=== PATIENT | female | born 1945 | race Caucasian/White ===

== ENCOUNTER → 2023-08-10 15:10 | Outpatient (CLI) | payer MEDICARE, SELFPAY ==
--- NOTE | 2023-08-10 14:34 | DI.RAD_ITS ---
Exam(s) XR HUMERUS LT EXAM: XR HUMERUS LT CLINICAL HISTORY: evaluate fx, lt upper arm pain, M79.622. TECHNIQUE: 2D digital imaging was performed. COMPARISON: No exams were available for comparison FINDINGS: There is a mildly impacted humeral neck fracture. There is also vertically orientated nondisplaced f racture of the greater tuberosity of the humeral head. No dislocation of the humeral head evident. No obvious fractures lower down in the humerus. No obvious scapular fracture. No adjacent rib fract ures. IMPRESSION: Humeral head-neck fractures as described above. Mild impaction. No prominent displacement and no di slocation of the humeral head. DATA REPOSITORY: RADIATION DOSE DELIVERED:
--- NOTE | 2023-08-10 14:40 | DI.RAD_ITS ---
Exam(s) XR ELBOW LT COMPLETE EXAM: XR ELBOW LT COMPLETE CLINICAL HISTORY: evaluate fx, lt upper arm pain, M79.622. TECHNIQUE: 2D digital imaging was performed. COMPARISON: No exams were available for comparison FINDINGS: 3 views No evidence of fracture of the distal humerus and elbow. Radial head and neck appear unremarkable. No obvious joint effusion. Bone density normal. No osseous lesions. Dorsal soft tissue swelling is noted in the proximal forearm IMPRESSION: Dorsal soft tissue swelling but no elbow fracture. Please note that there is a fracture of the humeral head-neck. See separate humerus report. DATA REPOSITORY: RADIATION DOSE DELIVERED:
== END ==
PROVIDERS: Visit Provider Nurse Practitioner Family
DX: M79.622 Pain in left upper arm (principal); S42.295A Other nondisplaced fracture of upper end of left humerus, initial encounter for closed fracture; X58.XXXA Exposure to other specified factors, initial encounter
CPT/HCPCS: 73060; 73080

== ENCOUNTER 2023-08-13 09:01 | Outpatient (CLI) | payer MEDICARE, SELFPAY ==
--- NOTE | 2023-08-13 08:30 | DI.RAD_ITS ---
Exam(s) XR SHOULDER LT COMPLETE 2+V EXAM: XR SHOULDER LT COMPLETE 2+V CLINICAL HISTORY: fracture follow up. TECHNIQUE: 2D digital imaging was performed. COMPARISON: CR XR HUMERUS LT from 08/10/2023 FINDINGS: Two views. Again noted is the recently described acute fracture at the base of the greater tuberosity and also i nvolving the lateral humeral neck. There is again no significant displacement. No abnormal calcific ations nor bone fragments evident in the subacromial space.. No dislocation IMPRESSION: Stable appearance of the previously described fracture site without significant displacement. DATA REPOSITORY: RADIATION DOSE DELIVERED:
== END 2023-08-13 09:02 | disposition home or self-care (01) ==
LOC: DIORS 09:03
PROVIDERS: Visit Provider Physician Assistant
DX: S42.202A Unspecified fracture of upper end of left humerus, initial encounter for closed fracture (principal); W19.XXXA Unspecified fall, initial encounter; Y93.29 Activity, other involving ice and snow
CPT/HCPCS: 99203; 73030

== ENCOUNTER 2023-08-31 11:47 | Outpatient (CLI) | payer MEDICARE, SELFPAY ==
--- NOTE | 2023-08-31 08:50 | DI.RAD_ITS ---
Exam(s) XR SHOULDER LT COMPLETE 2+V EXAM: XR SHOULDER LT COMPLETE 2+V INDICATION: F/U FRACTURE. COMPARISON: CR XR HUMERUS LT from 08/10/2023 CR XR SHOULDER LT COMPLETE 2+V from 08/13/2023 TECHNIQUE: 2D digital imaging was performed. Two views. FINDINGS: There has been no change in the alignment of the fracture at the greater tuberosity. No new findings . DATA REPOSITORY: RADIATION DOSE DELIVERED:
== END 2023-08-31 11:48 | disposition home or self-care (01) ==
LOC: DIORS 11:48
PROVIDERS: Visit Provider Student in an Organized Health Care Education/Training Program
DX: S42.202D Unspecified fracture of upper end of left humerus, subsequent encounter for fracture with routine healing (principal); X58.XXXD Exposure to other specified factors, subsequent encounter
CPT/HCPCS: 99213; 73030

== ENCOUNTER 2023-10-05 13:17 | Outpatient (CLI) | payer MEDICARE, SELFPAY ==
--- NOTE | 2023-10-05 08:30 | DI.RAD_ITS ---
Exam(s) XR SHOULDER LT COMPLETE 2+V EXAM: XR SHOULDER LT COMPLETE 2+V CLINICAL HISTORY: F/U FRACTURE. TECHNIQUE: 2D digital imaging was performed. COMPARISON: CR XR HUMERUS LT from 08/10/2023 CR XR ELBOW LT COMPLETE from 08/10/2023 CR XR SHOULDER LT COMPLETE 2+V from 08/13/2023 CR XR SHOULDER LT COMPLETE 2+V from 08/31/2023 FINDINGS: Two views: Again noted is the fracture of the greater tuberosity. The fracture line is still visible but there is no further displacement of the main fracture fragment which remains in satisfactory position. The re are no new additional fracture fragments in the subacromial space. Mild-moderate degenerative changes are again noted in the glenohumeral joint. No significant osseous lesions evident. IMPRESSION: Stable appearance, as above. DATA REPOSITORY: RADIATION DOSE DELIVERED:
== END 2023-10-05 13:18 | disposition home or self-care (01) ==
LOC: DIORS 13:17
PROVIDERS: Visit Provider Student in an Organized Health Care Education/Training Program
DX: S42.202D Unspecified fracture of upper end of left humerus, subsequent encounter for fracture with routine healing (principal); X58.XXXD Exposure to other specified factors, subsequent encounter
CPT/HCPCS: 99213; 73030

== ENCOUNTER 2023-12-28 09:18 | Outpatient (CLI) | payer MEDICARE, SELFPAY ==
--- NOTE | 2023-12-28 08:53 | DI.RAD_ITS ---
Exam(s) XR SHOULDER LT COMPLETE 2+V EXAM: XR SHOULDER LT COMPLETE 2+V CLINICAL HISTORY: F/U FRACTURE. TECHNIQUE: 2D digital imaging was performed. COMPARISON: CR XR SHOULDER LT COMPLETE 2+V from 08/13/2023 CR XR SHOULDER LT COMPLETE 2+V from 10/05/2023 FINDINGS: Two views. No evidence of acute fracture. There is further healing of the previously present greater tuberosity fracture which occurred in July 2023. Fracture line is not visible on this 2 image study. There is a small calcific density in the soft tissues just above the greater tuberosity. There is no calc ification previously at this level and therefore this matter be a small calcific fragment or developm ent of calcific rotator cuff tendinitis at the insertional aspect foot pad level. There are no degenerative changes in the glenohumeral joint. Subacromial space is slightly diminishe d. IMPRESSION: Further healing/healed greater tuberosity fracture. Sliver of calcium in the soft tissues adjacent to the greater tuberosity at the rotator cuff foot pad insertional level. Probably development of calcific rotator cuff tendinitis. DATA REPOSITORY: RADIATION DOSE DELIVERED:
== END 2023-12-28 09:19 | disposition home or self-care (01) ==
LOC: DIORS 09:20
PROVIDERS: Visit Provider Student in an Organized Health Care Education/Training Program
DX: S42.202D Unspecified fracture of upper end of left humerus, subsequent encounter for fracture with routine healing (principal); X58.XXXD Exposure to other specified factors, subsequent encounter
CPT/HCPCS: 99213; 73030